=== PATIENT | female | born 1955 | race Caucasian/White ===

== ENCOUNTER → 2017-08-21 | Outpatient (CLI) | payer MEDICARE, MEDICAID | LOC: CFH 11:10 | PROVIDERS: ATTEND Internal Medicine Hematology & Oncology | DX: Z02.9 Encounter for administrative examinations, unspecified (principal) ==

== ENCOUNTER → 2017-08-21 | Outpatient (CLI) | payer MEDICARE, MEDICAID | LOC: PETCFH 11:00 | PROVIDERS: ATTEND Internal Medicine Hematology & Oncology | DX: Z02.9 Encounter for administrative examinations, unspecified (principal) ==

== ENCOUNTER → 2017-08-22 | Outpatient (CLI) | payer MEDICARE, MEDICAID | LOC: CVU 12:43 | PROVIDERS: ATTEND Internal Medicine Hematology & Oncology | DX: C50.411 Malignant neoplasm of upper-outer quadrant of right female breast (principal); Z87.891 Personal history of nicotine dependence | CPT/HCPCS: 93306 ==

== ENCOUNTER → 2017-09-17 | Outpatient (CLI) | payer MEDICARE, MEDICAID | END | disposition home or self-care (01) | LOC: PETCFH 07:58 | PROVIDERS: ATTEND Internal Medicine Hematology & Oncology | DX: C50.411 Malignant neoplasm of upper-outer quadrant of right female breast (principal) | CPT/HCPCS: 82565 ==

== ENCOUNTER → 2017-09-29 | Outpatient (CLI) | payer MEDICARE, MEDICAID | LOC: RAD 11:17 | PROVIDERS: ATTEND Internal Medicine Hematology & Oncology | DX: C50.411 Malignant neoplasm of upper-outer quadrant of right female breast (principal) | CPT/HCPCS: 78306; A9503; J1642 ==

== ENCOUNTER → 2018-08-19 | Outpatient (CLI) | payer MEDICARE, MEDICAID ==
[~2018-08-19] MED LIST: FENTANYL PF 100 MCG/2ML ONE; FLUMAZENIL 0.1 MG/1 ML, 5ML ONE; MIDAZOLAM 1 MG/ML, 5ML ONE; NALOXONE 1 MG/ML, 2ML ONE
== END | disposition home or self-care (01) ==
LOC: RAD 09:39
PROVIDERS: ATTEND Specialist
DX: M54.5 Low back pain (principal); M54.2 Cervicalgia
CPT/HCPCS: J1642; J2250; J3010; J2310

== ENCOUNTER 2018-09-29 11:00 | Day surgery (SDC) | payer MEDICARE, MEDICAID ==
[~2018-09-29] VITALS: Ht 165.1 cm; Wt 83.6 kg
[2018-09-29] MEDS ORDERED: LACTATED RINGERS 1,000 ML IV SCH (12:26)
[2018-09-29] MEDS ORDERED: ALPR1TAB6 PO (12:30)
[2018-09-29] MEDS ORDERED: OXYC10TA6 PO (12:30)
[2018-09-29] MEDS ORDERED: METH40TA3 PO (12:30)
[2018-09-29 12:33] VITALS: BP 118/84
[2018-09-29] MEDS ORDERED: GADOBUTROL 7.5 MMOL/7.5 ML PFS ONE (13:55)
[2018-09-29] MEDS ORDERED: HALOPERIDOL 5 MG/ML ONE (14:14)
[2018-09-29] MEDS ORDERED: OXYcodone 5 MG/5 ML ORAL.SOL UDC ONE (14:27)
[2018-09-29] MEDS ORDERED: HALOPERIDOL 5 MG/ML IV PRN ×2 (14:30)
[2018-09-29] MEDS ORDERED: FENTANYL PF 100 MCG/2ML IV PRN (14:30)
[2018-09-29] MEDS ORDERED: HALOPERIDOL 5 MG/ML IV ONE (14:30)
[2018-09-29] MEDS ORDERED: OXYcodone 5 MG/5 ML ORAL.SOL UDC PO ONE (15:00)
[2018-09-29] MEDS ORDERED: PROPOFOL 10 MG/ML, 20ML ONE (15:33)
== END 2018-09-29 16:30 | disposition home or self-care (01) ==
LOC: OUT 11:00 → EDSTATUS 12:45 → OUT 16:30
PROVIDERS: ATTEND Specialist
DX: M51.36 Other intervertebral disc degeneration, lumbar region (principal); M54.2 Cervicalgia
CPT/HCPCS: 72148; 72156; 93005; A9585; J1630; J2704; J7120

== ENCOUNTER 2019-01-22 10:29 | Emergency (ER) | payer MEDICARE, MEDICAID ==
[~2019-01-22] VITALS: Ht 165.1 cm; Wt 87.5 kg
[2019-01-22 10:37] VITALS: BP 103/74
== END 2019-01-22 12:10 | disposition home or self-care (01) ==
LOC: ED 11:53
DX: S29.9XXA Unspecified injury of thorax, initial encounter (principal); F31.9 Bipolar disorder, unspecified; F41.1 Generalized anxiety disorder; W20.8XXA Other cause of strike by thrown, projected or falling object, initial encounter; Y93.89 Activity, other specified; Y92.89 Other specified places as the place of occurrence of the external cause; Y99.8 Other external cause status
CPT/HCPCS: 71046; 93005; 99283

== ENCOUNTER 2019-06-18 11:21 | Emergency (ER) | payer MEDICARE, MEDICAID ==
[~2019-06-18] VITALS: Ht 165.1 cm; Wt 77.0 kg
[~2019-06-18 11:21] MED LIST changes: +ALPR1TAB6 PO; -FENTANYL PF 100 MCG/2ML ONE; -FLUMAZENIL 0.1 MG/1 ML, 5ML ONE; +METH40TA3 PO; -MIDAZOLAM 1 MG/ML, 5ML ONE; -NALOXONE 1 MG/ML, 2ML ONE; +OXYC10TA6 PO
[2019-06-18 11:26] VITALS: BP 131/81
--- NOTE | 2019-06-18 13:58 | NUR ---
PT RESTING IN ROOM, AT BEDSIDE. UP TO RESTROOM WITH AT SIDE TO ASSIST. PT RETURNED TO BED WITHOUT ISSUE. UPDATED ON PLAN OF CARE. DENIES ANY FURTHER NEEDS OR CONCERNS AT THIS TIME. CALL LIGHT IN REACH.
--- NOTE | 2019-06-18 14:08 | NUR ---
BEDSIDE REPORT RECEIVED FROM JAISON HERMAN. PLAN OF CARE DISCUSSED. WAITING ON DISCHARGE PAPERWORK
--- NOTE | 2019-06-18 14:18 | NUR ---
Patient/Caregiver given discharge instructions and they have confirmed that they understand the instructions. Patient ambulatory, but wheeled to discharge. will walk patient to car.
== END 2019-06-18 14:33 | disposition home or self-care (01) ==
LOC: ED 14:30
DX: S32.030A Wedge compression fracture of third lumbar vertebra, initial encounter for closed fracture (principal); G89.29 Other chronic pain; F17.200 Nicotine dependence, unspecified, uncomplicated; X58.XXXA Exposure to other specified factors, initial encounter; Y93.89 Activity, other specified; Y92.89 Other specified places as the place of occurrence of the external cause; Y99.8 Other external cause status
CPT/HCPCS: 72110; 99283

== ENCOUNTER 2019-08-21 11:23 | Emergency (ER) | payer MEDICARE, MEDICAID ==
[~2019-08-21] VITALS: Ht 165.1 cm; Wt 81.4 kg
[2019-08-21 11:38] VITALS: BP 131/86
--- NOTE | 2019-08-21 11:47 | NUR ---
PT ELOPED AFTER BEING SEEN IN [facility] BY ELIZABETH.
[2019-08-21] MEDS ORDERED: NEOSPORIN OINT. PKT 1 PACKET ONE (12:51)
== END 2019-08-21 11:49 | disposition left against medical advice (07) ==
LOC: ED 11:40
DX: S00.81XA Abrasion of other part of head, initial encounter (principal); F17.200 Nicotine dependence, unspecified, uncomplicated; W18.30XA Fall on same level, unspecified, initial encounter; Y93.89 Activity, other specified; Y92.009 Unspecified place in unspecified non-institutional (private) residence as the place of occurrence of the external cause; Y99.8 Other external cause status
CPT/HCPCS: 99282

== ENCOUNTER 2020-09-01 12:44 | Emergency (ER) | payer MEDICARE, MEDICAID ==
[~2020-09-01] VITALS: Ht 165.1 cm; Wt 54.5 kg
[~2020-09-01 12:44] MED LIST changes: +ALPR-585 PO; -ALPR1TAB6 PO
--- NOTE | 2020-09-01 12:48 | NUR ---
COOKING APPLIANCE REPAIR TECHNICIAN: PT REFUSING TO BE TRIAGED UNTIL COMES BACK TO ED TO BE WITH PT.
[2020-09-01 12:52] VITALS: BP 101/70
--- NOTE | 2020-09-01 13:00 | NUR ---
pt and harriett at bedside. both very lethargic. stated that "she self medicates with herion". pt and spouse both admitted to doing herion before coming to the er. pt refusing lab tests. not allowing md porcelain finisher to complete exam
[2020-09-01] MEDS ORDERED: VANCOMYCIN PER PHARMACY MC ONE (13:30)
[2020-09-01] MEDS ORDERED: PLEASE ENTER MEASURED WEIGHT MC SCH ×2 (14:00)
--- NOTE | 2020-09-01 14:24 | NUR ---
pt left ama. refused treatment. had steady gait. left with harriett
== END 2020-09-01 14:27 | disposition home or self-care (01) ==
LOC: ED 13:06
DX: L02.33 Carbuncle of buttock (principal); G89.29 Other chronic pain; F17.200 Nicotine dependence, unspecified, uncomplicated; Z85.3 Personal history of malignant neoplasm of breast
CPT/HCPCS: 99281

== ENCOUNTER 2020-09-07 21:03 | Emergency (ER) | payer MEDICARE, MEDICAID ==
[~2020-09-07] VITALS: Ht 165.1 cm; Wt 65.0 kg
[2020-09-07 21:19] VITALS: BP 99/72
--- NOTE | 2020-09-07 21:42 | NUR ---
Pt and spouse appear very sedated, slurred speach. Pt has wound on left hip that placed scotch tape over it will need to be soaked off.
--- NOTE | 2020-09-07 21:54 | NUR ---
Pt can barely stay awake, nodding off slurred speach. But asking for pain medication. Pt also has masking tape covering her left hip wound, states thats all she had to cover it. Dr Chanel at bedside. Requesting records.
--- NOTE | 2020-09-07 21:56 | NUR ---
Refusing to provide urine sample.
--- NOTE | 2020-09-07 22:04 | NUR ---
Pt refusing to allow lab to draw blood. Pt will now give urine sample, walking pt to bathroom with urine cup.
--- NOTE | 2020-09-07 22:43 | NUR ---
Pt refusing lab draw or further tx just wants abx. pt to sign AMA form
--- NOTE | 2020-09-07 22:50 | NUR ---
Pt refusing to allow this nurse to touch wound, pt refusing labs did provide urine. Will not allow anyone to draw blood. Dr Chanel aware. Pt says "i just want abx". Pt signed AMA. Pt states she understands all risks and she just wants to go with abx.
--- NOTE | 2020-09-07 23:19 | NUR ---
Pt did allow me to cleanse and dress buttocks wound, still refuses blood work or other tx. Signed AmA. Few supplies given to go home for proper dressing. Told to NOT put anymore scotch tape on wounds.
--- NOTE | 2020-09-07 23:23 | NUR ---
Rx given and instruct, pt educated on proper f/u, wound care and the dangers of leaving without proper tx.
[2020-09-07 23:54] LABS: AMPHETAMINE SCREEN, URINE Positive (Negative); BARBITURATE SCREEN, URINE Negative (Negative); BENZODIAZEPINE SCREEN, URINE Positive (Negative); CANNABINOID SCREEN, URINE Negative (Negative); COCAINE SCREEN, URINE Negative (Negative); METHADONE SCREEN, URINE Positive (Negative); OPIATE SCREEN, URINE Positive (Negative)
== END 2020-09-07 23:49 | disposition left against medical advice (07) ==
LOC: ED 21:33
DX: A41.9 Sepsis, unspecified organism (principal); L03.116 Cellulitis of left lower limb; L03.115 Cellulitis of right lower limb; F11.129 Opioid abuse with intoxication, unspecified; G89.29 Other chronic pain; Z72.9 Problem related to lifestyle, unspecified; Z85.3 Personal history of malignant neoplasm of breast
CPT/HCPCS: 80307; 99291

== ENCOUNTER 2021-03-02 17:56 | Emergency (ER) | payer MEDICARE, MEDICAID ==
--- NOTE | 2021-03-02 18:09 | NUR ---
SHARLENEX1
--- NOTE | 2021-03-02 18:21 | NUR ---
NILX2
== END 2021-03-02 18:36 | disposition left against medical advice (07) ==
LOC: ED 18:01
DX: Z53.21 Procedure and treatment not carried out due to patient leaving prior to being seen by health care provider (principal)

== ENCOUNTER 2021-03-08 13:15 | Emergency (ER) | payer MEDICARE, MEDICAID ==
[~2021-03-08] VITALS: Ht 152.4 cm; Wt 65.5 kg
[2021-03-08 13:45] VITALS: BP 95/57
[2021-03-08] MEDS ORDERED: SODIUM CHLORIDE FLUSH 10ML SYR IVF ONE (14:00)
[2021-03-08] MEDS ORDERED: SODIUM CHLORIDE 0.9% 1,000ML IVBOLUS ONE (14:00)
--- NOTE | 2021-03-08 14:28 | NUR ---
PT SIGNED OUT AMA WITH REG ASSOCIATE PROFESSOR OF LITERACY.
== END 2021-03-08 14:32 | disposition left against medical advice (07) ==
LOC: ED 14:00
DX: S30.0XXA Contusion of lower back and pelvis, initial encounter (principal); M79.10 Myalgia, unspecified site; R11.0 Nausea; X58.XXXA Exposure to other specified factors, initial encounter; Y93.89 Activity, other specified; Y92.89 Other specified places as the place of occurrence of the external cause; Y99.8 Other external cause status
CPT/HCPCS: 99281

== ENCOUNTER 2021-03-09 09:42 | Emergency (ER) | payer MEDICARE, MEDICAID ==
[~2021-03-09] VITALS: Ht 165.1 cm; Wt 65.0 kg
[2021-03-09 11:07] VITALS: BP 98/62
[2021-03-09 12:55] LABS: MICROSCOPIC INDICATED
--- NOTE | 2021-03-09 13:08 | NUR ---
TEST FACILITY ENGINEER: NO ANSWER FOR LAB
--- NOTE | 2021-03-09 13:24 | NUR ---
bun icer note: No answer from lobby when called for room.
--- NOTE | 2021-03-09 15:00 | NUR ---
No answer from lobby when pt called for room.
--- NOTE | 2021-03-09 15:13 | NUR ---
No answer from lobby when called for room.
== END 2021-03-09 15:15 | disposition left against medical advice (07) ==
LOC: ED 15:08
DX: M79.18 Myalgia, other site (principal)
CPT/HCPCS: 71045; 81001; 87086; 99284